=== PATIENT | female | born 1985 | race Two or more races ===

== ENCOUNTER 2019-05-09 09:50 | Emergency (ER) | payer MEDICAID ==
[~2019-05-09] VITALS: Ht 144.8 cm; Wt 74.8 kg
[2019-05-09 09:59] VITALS: BP 130/88
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
[2019-05-09] MEDS ORDERED: Methocarbamol 750mg tab ORAL ONE (10:15)
--- NOTE | 2019-05-09 10:24 | NUR ---
ED Nurse Note: pt amb slowly with steady gait to obtain urine sample prior to meds given
--- NOTE | 2019-05-09 10:27 | NUR ---
ED Nurse Note: pt urine sent
--- NOTE | 2019-05-09 11:14 | NUR ---
ED Nurse Note: pt currently in radiology dept
--- NOTE | 2019-05-09 12:09 | NUR ---
ED Nurse Note: pt to ct scan
[2019-05-09] MEDS ORDERED: ROBAXIN-750750 MG PO (13:06)
[2019-05-09] MEDS ORDERED: IBUPROFEN600 MG ORAL (13:06)
[2019-05-09 13:20] VITALS: BP 130/88
--- NOTE | 2019-05-09 13:20 | NUR ---
ED Nurse Note: Pt cleared by health care Provider for discharge. DC instructions/prescription was given and explained to pt and verbalized understanding of teachings. All medical deviecs such as ID band removed. Pt is AAO x4, ambulatory and left with all personal belongings. amb steady gait out of ed.
--- NOTE | 2019-05-09 13:33 | Diagnostic Imaging Report ---
Indication: Right shoulder pain COMPARISON: None Findings: 3 views of the right shoulder were obtained. No acute fractures, malalignment, erosions or periostitis are identified. Soft tissues are unremarkable. Impression: Negative for acute injury
--- NOTE | 2019-05-09 13:34 | Diagnostic Imaging Report ---
Indications: Right hip pain Findings: Two views of the right hip were obtained. No acute fracture is demonstrated. Alignment of the hip is within normal limits. Soft tissues are unremarkable. Impression: Negative for acute injury.
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
--- NOTE | 2019-05-09 14:46 | Diagnostic Imaging Report ---
Indication: Back pain Technique: Continuous helical transaxial imaging of the lumbar spine was obtained. Coronal 2-D reformats were also obtained. Study obtained in a Siemens sensation [address] Total Dose length Product (DLP): 824.[address] Dose Index Volume (CTDIvol): 19.8 mGy Comparison: None Findings: There is no evidence of an acute fracture or malalignment. Height and configuration of the vertebral bodies and intervertebral discs are within normal limits. The facets are unremarkable. There is no soft tissue swelling. Impression: Negative lumbar spine CT The CT scanner at [facility] is accredited by the [employer] and the scans are performed using dose optimization techniques as appropriate to a performed exam including Automatic Exposure control.
== END 2019-05-09 13:20 | disposition home or self-care (01) ==
LOC: EDBD 09:50 → EMR 13:01
DX: M25.511 Pain in right shoulder (principal); M25.552 Pain in left hip; V43.52XA Car driver injured in collision with other type car in traffic accident, initial encounter; Y92.410 Unspecified street and highway as the place of occurrence of the external cause
CPT/HCPCS: 72131; 73030; 73501; 81025; Z7502; 99284